=== PATIENT | female | born 1980 | race American Indian/Alaskan Native ===

== ENCOUNTER 2018-08-26 11:30 | Emergency (ER) | payer BC, OTHER ==
[2018-08-26] MEDS ORDERED: NACL 0.9% 1000 ML 1,000 ML IV ONE (11:38)
[2018-08-26] MEDS ORDERED: BENADRYL IV ONE (11:38)
[2018-08-26] MEDS ORDERED: TORADOL IV ONE (11:38)
[2018-08-26] MEDS ORDERED: REGLAN IV ONE (11:38)
--- NOTE | 2018-08-26 11:49 | Emergency Department Report ---
ED Neuro Deficit HPI - General Stated Complaint: AMS Time Seen by Provider: 08/26/18 11:37 Source: patient Mode of arrival: Ambulatory Limitations: No Limitations - History of Present Illness Initial Comments: 38-year-old female with a the past medical history of migraines presents to the hospital complaints of headache and paresthesias. Patient states she has not had a headache in several years. She woke up at 7:30 AM with a constant throbbing left-sided headache similar to her previous migraines. Positive nausea without vomiting. Positive light sensitivity. Patient into both bilateral hands and leg paresthesias at 10 AM. These paresthesias localized to the left side at the EMS arrival. They reported the patient seems slow to respond to questions. She is currently ao 3 upon arrival. - Related Data Home Medications: Previous Rx's Medication Instructions Recorded Last Taken Type Diclofenac Dr [Voltaren Dr] 75 mg PO Q12H #30 tablet 11/10/15 Unknown Rx HYDROcodone/APAP 5-325 [[place] 1 each PO Q6HR PRN #16 tablet 11/10/15 Unknown Rx 5/325] Ondansetron [Zofran Odt] 4 mg PO Q8HR PRN #20 tab.rapdis 08/26/18 Unknown Rx SUMAtriptan succinate [Imitrex] 1 - 2 tab PO ONCE PRN #10 tablet 08/26/18 Unknown Rx Allergies/Adverse Reactions: Allergies Allergy/AdvReac Type Severity Reaction Status Date / Time Sulfa (Sulfonamide Allergy Swelling Verified 11/10/15 07:18 Antibiotics) ED Review of Systems ROS: Stated complaint: AMS Other details as noted in HPI Comment: All other systems reviewed and negative ED Past Medical Hx - Past Medical History Hx Asthma: Yes - Social History Smoking Status: Never Smoker Substance Use Type: Alcohol - Medications Home Medications: Home Medications Medication Instructions Recorded Confirmed Last Taken Type Diclofenac Dr [Voltaren Dr] 75 mg PO Q12H #30 tablet 11/10/15 Unknown Rx HYDROcodone/APAP 5-325 [[place] 1 each PO Q6HR PRN #16 tablet 11/10/15 Unknown Rx 5/325] Ondansetron [Zofran Odt] 4 mg PO Q8HR PRN #20 tab.rapdis 08/26/18 Unknown Rx SUMAtriptan succinate [Imitrex] 1 - 2 tab PO ONCE PRN #10 tablet 08/26/18 Unknown Rx ED Neuro Physical Exam - General Suspected Stroke: Yes - NIHSS Assessment Interval: Baseline 1a. Level of Consciousness: alert/keenly responsive 1b. LOC Questions: answers both correctly 1c. LOC Commands: performs tasks correctly 2. Best Gaze: normal 3. Visual: no visual loss 4. Facial Palsy: normal symmetrical movement 5b. Motor Arm Right: no drift 5a. Motor Arm Left: no drift 6a. Motor Leg Left: no drift 6b. Motor Leg Right: no drift 7. Limb Ataxia: absent 8. Sensory: normal 9. Best Language: no aphasia 10. Dysarthria: normal 11. Extinction/Inattention: no abnormality Total Score: 0 Stroke Severity: No Stroke Symptoms - Other Other exam information: General: No limitations, patient is alert in no acute distress Head exam: Atraumatic, normocephalic Eyes exam: Normal appearance, pupils equal reactive to light, extraocular movements intact ENT: Moist mucous membrane, normal oropharynx Neck exam: Normal inspection, full range of motion, no meningismus nontender Respiratory exam: Clear to auscultation bilateral, no wheezes, rales, crackles Cardiovascular: Normal rate and rhythm, normal heart sounds Abdomen: Soft, nondistended, and nontender, with normal bowel sounds, no rebound, or guarding Extremity: Full range of motion normal inspection no deformity Back: Normal Inspection, full range of motion, no tenderness Neurologic: Alert, oriented x3, cranial nerves intact, no motor or sensory deficit Psychiatric: normal affect, normal mood Skin: Warm, dry, intact ED Course Vital Signs 08/26/18 08/26/18 08/26/18 11:40 12:04 12:34 Pulse Rate 72 Respiratory 16 18 18 Rate Blood Pressure 124/91 O2 Sat by Pulse 99 Oximetry 08/26/18 13:44 Pulse Rate Respiratory 18 Rate Blood Pressure O2 Sat by Pulse 99 Oximetry - Reevaluation(s) Reevaluation #1: 08/26/18 14:17 Patient has been resting since receiving her medications 2 hours ago and requests her headache and numbness have resolved - Lab Data Result diagrams: 08/26/18 11:43 08/26/18 11:43 Lab Results 08/26/18 08/26/18 08/26/18 Range/Units 11:35 11:43 11:43 WBC 4.0 L (4.5-11.0) K/mm3 RBC 3.95 (3.65-5.03) M/mm3 Hgb 13.6 (10.1-14.3) gm/dl Hct 39.6 (30.3-42.9) % MCV 100 H (79-97) fl MCH 34 H (28-32) pg MCHC 34 (30-34) % RDW 12.7 L (13.2-15.2) % Plt Count 213 (140-440) K/mm3 Lymph % (Auto) 40.9 H (13.4-35.0) % [place] % (Auto) 7.6 H (0.0-7.3) % Eos % (Auto) 6.7 H (0.0-4.3) % Baso % (Auto) 1.3 (0.0-1.8) % Lymph # 1.6 (1.2-5.4) K/mm3 [place] # 0.3 (0.0-0.8) K/mm3 Eos # 0.3 (0.0-0.4) K/mm3 Baso # 0.1 (0.0-0.1) K/mm3 Seg Neutrophils % 43.5 (40.0-70.0) % Seg Neutrophils # 1.7 L (1.8-7.7) K/mm3 Sodium 141 (137-145) mmol/L Potassium 3.8 (3.6-5.0) mmol/L Chloride 106.3 (98-107) mmol/L Carbon Dioxide 25 (22-30) mmol/L Anion Gap 14 mmol/L BUN 8 (7-17) mg/dL Creatinine 0.7 (0.7-1.2) mg/dL Estimated GFR > 60 ml/min BUN/Creatinine Ratio 11 % Glucose 92 (65-100) mg/dL POC Glucose 83 (70-105) Calcium 9.2 (8.4-10.2) mg/dL HCG, Qual (Negative) 08/26/18 Range/Units 11:43 WBC (4.5-11.0) K/mm3 RBC (3.65-5.03) M/mm3 Hgb (10.1-14.3) gm/dl Hct (30.3-42.9) % MCV (79-97) fl MCH (28-32) pg MCHC (30-34) % RDW (13.2-15.2) % Plt Count (140-440) K/mm3 Lymph % (Auto) (13.4-35.0) % [place] % (Auto) (0.0-7.3) % Eos % (Auto) (0.0-4.3) % Baso % (Auto) (0.0-1.8) % Lymph # (1.2-5.4) K/mm3 [place] # (0.0-0.8) K/mm3 Eos # (0.0-0.4) K/mm3 Baso # (0.0-0.1) K/mm3 Seg Neutrophils % (40.0-70.0) % Seg Neutrophils # (1.8-7.7) K/mm3 Sodium (137-145) mmol/L Potassium (3.6-5.0) mmol/L Chloride (98-107) mmol/L Carbon Dioxide (22-30) mmol/L Anion Gap mmol/L BUN (7-17) mg/dL Creatinine (0.7-1.2) mg/dL Estimated GFR ml/min BUN/Creatinine Ratio % Glucose (65-100) mg/dL POC Glucose (70-105) Calcium (8.4-10.2) mg/dL HCG, Qual Negative (Negative) - Radiology Data Radiology results: report reviewed FINAL REPORT EXAM: CT HEAD/BRAIN WO CON HISTORY: left sided humphreys, left paresthesia, migraine hx TECHNIQUE: CT examination of the head without IV contrast PRIORS: None. FINDINGS: Scattered slight mucosal thickening ethmoid sinuses. Other paranasal sinuses are clear as are the mastoid air cells and middle ear cavities. No acute air-fluid level visualized in the included air-filled sinuses. Bone windows demonstrate no acute fracture. The brain is without mass, mass effect, hemorrhage, or acute infarct. There is no extra-axial intracranial bleed, brain bleed, or midline shift. The ventricles and sulci are age-appropriate. IMPRESSION: No acute CVA, intracranial bleed, or brain mass Scattered slight mucosal thickening ethmoid sinuses without visible acute fluid level - Medical Decision Making Patient presented with migraine symptoms. CT head unremarkable. No focal neurologic deficit identified on exam. Symptoms improved with a cocktail Reglan , Benadryl, Toradol, and normal saline. Patient was discharged home to follow- up with her PCP and neurology referral will be provided. - Differential Diagnosis CVA, migraine, Migraine, ICH, cranial mass Critical Care Time: No Critical care attestation.: If time is entered above; I have spent that time in minutes in the direct care of this critically ill patient, excluding procedure time. ED Disposition Clinical Impression: Migraine Disposition: DC-01 TO HOME OR SELFCARE Is pt being admited?: No Does the pt Need Aspirin: No Condition: Stable Instructions: Migraine Headache (ED) Additional Instructions: Take the medication as prescribed. Follow up with your doctor and a neurologist. Return if symptoms worsen as indicated by your discharge instructions. You may download the Framed Data estelita to obtain prescription coupons as needed. Prescriptions: Ondansetron [Zofran Odt] 4 mg PO Q8HR PRN #20 tab.rapdis PRN Reason: Nausea And Vomiting SUMAtriptan succinate [Imitrex] 1 - 2 tab PO ONCE PRN #10 tablet PRN Reason: Migraine Headache Referrals: PRIMARY CARE, [Primary Care Provider] - 3-5 Days MARTINA HICKMAN MD [Staff Physician] - 3-5 Days (Neurologist) Time of Disposition: 14:32
[2018-08-26 11:52] LABS: Basophils # (Auto) 0.1 K/mm3 (0.0-0.1); Basophils % (Auto) 1.3 % (0.0-1.8); Eosinophils # (Auto) 0.3 K/mm3 (0.0-0.4); Eosinophils % (Auto) 6.7 % (0.0-4.3); Hematocrit 39.6 % (30.3-42.9); Hemoglobin 13.6 gm/dl (10.1-14.3); Lymphocytes # (Auto) 1.6 K/mm3 (1.2-5.4); Lymphocytes % (Auto) 40.9 % (13.4-35.0); Mean Corpuscular HGB Conc 34 % (30-34); Mean Corpuscular Hemoglobin 34 pg (28-32); Mean Corpuscular Volume 100 fl (79-97); Monocytes # (Auto) 0.3 K/mm3 (0.0-0.8); Monocytes % (Auto) 7.6 % (0.0-7.3); Platelet Count 213 K/mm3 (140-440); Red Blood Count 3.95 M/mm3 (3.65-5.03); Red Cell Distribution Width 12.7 % (13.2-15.2)
[2018-08-26 12:10] LABS: BUN/Creatinine Ratio 11; Blood Urea Nitrogen 8 mg/dL (7-17); Calcium 9.2 mg/dL (8.4-10.2); Hemolysis Index 11
--- NOTE | 2018-08-26 13:10 | Cat Scan Report ---
FINAL REPORT EXAM: CT HEAD/BRAIN WO CON HISTORY: left sided humphreys, left paresthesia, migraine hx TECHNIQUE: CT examination of the head without IV contrast PRIORS: None. FINDINGS: Scattered slight mucosal thickening ethmoid sinuses. Other paranasal sinuses are clear as are the mastoid air cells and middle ear cavities. No acute air-fluid level visualized in the included air-filled sinuses. Bone windows demonstrate no acute fracture. The brain is without mass, mass effect, hemorrhage, or acute infarct. There is no extra-axial intracranial bleed, brain bleed, or midline shift. The ventricles and sulci are age-appropriate. IMPRESSION: No acute CVA, intracranial bleed, or brain mass Scattered slight mucosal thickening ethmoid sinuses without visible acute fluid level
[2018-08-26 15:06] VITALS: BP 109/71
== END 2018-08-26 15:07 | disposition home or self-care (01) ==
LOC: ED 11:30
DX: G43.909 Migraine, unspecified, not intractable, without status migrainosus (principal); J45.909 Unspecified asthma, uncomplicated; Z88.2 Allergy status to sulfonamides
CPT/HCPCS: 36415; 70450; 80048; 82962; 84703; 85025; 96374; 96375; 99284; J1200; J1885; J2765; J7030